=== PATIENT | female | born 1945 | race Caucasian/White ===

== ENCOUNTER → 2017-04-09 | Outpatient (CLI) | payer OTHER ==
[~2017-04-09] MED LIST: ADVAIR 100/501 DISK IH; ALLOPURINOL100 MG PO; ASPIRIN325 MG PO; AVENTYL,PAMELOR25 MG PO; BENICAR40 MG PO; DOXAZOSIN MESYLA8 MG PO; FEXOFENADINE H180 MG PO; FLONASE16 G1 BOTH NARES; GLYBURIDE5 MG PO; HUMULIN 70100 UNIT/1 SC; IRON325 M1 PO; LASIX80 MG PO; LOVASTATIN10 MG PO; NORCO 7.5/321 TABLET PO; ONGLYZA2.5 MG PO; PLAVIX75 MG PO; PRILOSEC10 MG PO; PROAIR HFA8.5 GM IH; PROZAC20 MG PO; TENORMIN50 MG PO; VITAMIN D250000 UNIT PO
== END | disposition home or self-care (01) ==
LOC: RES 03-24 11:00
DX: J45.909 Unspecified asthma, uncomplicated (principal); Z87.09 Personal history of other diseases of the respiratory system
CPT/HCPCS: 71020; 94060; 94726; 94729